=== PATIENT | female | born 1950 | race Caucasian/White ===

== ENCOUNTER 2018-08-30 18:14 | Emergency (ER) | payer MEDICARE ==
[2018-08-30 18:57] VITALS: BP 155/79
--- NOTE | 2018-08-30 19:39 | UC ---
Complaint Female HPI - HPI Summary HPI Summary: 2-3 days of dysuria and cloudy urine. feels she has a UTI. does not have any other symptoms and does not get these often. - History Of Current Complaint Chief Complaint: UCGU Stated Complaint: URINARY COMPLAINT Time Seen by Provider: 08/30/18 18:57 Hx Obtained From: Patient Pain Intensity: 2 Pain Scale Used: 0-10 Numeric Character: Burning Aggravating Factor(s): Urination Alleviating Factor(s): Nothing Associated Signs And Symptoms: Negative: Fever, Back Pain - Allergies/Home Medications Allergies/Adverse Reactions: Allergies Allergy/AdvReac Type Severity Reaction Status Date / Time Sulfa (Sulfonamide Allergy Rash Verified 08/30/18 18:57 Antibiotics) Home Medications: Home Medications Bisoprolol/Hydrochlorothiazide [Ziac 2.5-6.25 mg-] 1 tab PO DAILY 08/30/18 [ History Confirmed 08/30/18] Ergocalciferol (Vitamin D2) [Vitamin D2] 2,000 unit PO DAILY 08/30/18 [History Confirmed 08/30/18] Lisinopril [Zestril] 10 mg PO BID 08/30/18 [History Confirmed 08/30/18] Omeprazole CAP(NF) [PriLOSEC CAP(NF)] 10 mg PO DAILY 08/30/18 [History Confirmed 08/30/18] Simvastatin TAB(NF) [Zocor(NF)] 10 mg PO DAILY 08/30/18 [History Confirmed 08/30] PMH/Surg Hx/FS Hx/Imm Hx Cardiovascular History: Hypertension - Surgical History Surgical History: None - Family History Known Family History: Positive: Non-Contributory - Social History Alcohol Use: None Substance Use Type: None Smoking Status (MU): Never Smoked Tobacco Review of Systems All Other Systems Reviewed And Are Negative: Yes Constitutional: Negative: Fever, Chills Respiratory: Positive: Negative Cardiovascular: Positive: Negative Gastrointestinal: Negative: Abdominal Pain, Vomiting, Nausea Genitourinary: Positive: Dysuria, Frequency. Negative: Hematuria, Urgency, Vaginal/Penile Discharge Musculoskeletal: Negative: Other: - denies back pain Physical Exam Triage Information Reviewed: Yes Appearance: Well-Appearing Vital Signs: Initial Vital Signs Temp 97.8 F 08/30/18 18:51 Pulse 81 08/30/18 18:51 Resp 16 08/30/18 18:51 BP 155/79 08/30/18 18:51 Pulse Ox 100 08/30/18 18:51 Vital Signs Reviewed: Yes Respiratory Exam: Normal Cardiovascular Exam: Normal Abdomen Description: Positive: Nontender, Soft. Negative: CVA Tenderness (R), CVA Tenderness (L) Neurological: Positive: Alert Complaint Female Dx - Course Course Of Treatment: acute dysuria and a UA showing blood and leuks but No nitrites. Exam unremarkable. afebrile and elevated bp but she will address this w/ pcp. Will send for urine cx and tx empricially w/ macrobid. - Differential Dx/Diagnosis Differential Diagnosis/HQI/PQRI: Sexually Transmitted Disease, Urinary Tract Infection Provider Diagnosis: UTI (urinary tract infection) Discharge - Sign-Out/Discharge Documenting (check all that apply): Patient Departure All imaging exams completed and their final reports reviewed: No Studies - Discharge Plan Condition: Good Disposition: HOME Prescriptions: Nitrofurantoin Monohyd/M-Cryst [Macrobid 100 mg Capsule] 100 mg PO BID 7 Days # 14 cap Patient Education Materials: Dysuria (ED) Referrals: Idalia Serrano MD [Primary Care Provider] - Additional Instructions: if worsening please follow up with your primary care provider. your blood pressure is elevated as well which your primary care provider can address. - Billing Disposition and Condition Condition: GOOD Disposition: Home - Attestation Statements Provider Attestation: Per institutional requirements, I have reviewed the chart, however, I was not consulted specifically or made aware of this patient by the midlevel provider. I did not personally evaluate, interact with , or disposition this patient.
== END 2018-08-30 19:44 | disposition home or self-care (01) ==
LOC: UCCORT 18:14
DX: N39.0 Urinary tract infection, site not specified (principal); Z88.2 Allergy status to sulfonamides; I10 Essential (primary) hypertension
CPT/HCPCS: 81003; 87086; 99202; G0463